=== PATIENT | female | born 1960 | race Caucasian/White ===

== ENCOUNTER → 2017-05-03 | Outpatient (CLI) | payer BC | LOC: MC.RAD 07:20 | DX: Z12.31 Encounter for screening mammogram for malignant neoplasm of breast (principal) ==

== ENCOUNTER → 2017-10-17 | Outpatient (CLI) | payer BC | LOC: COL.RAD 10-14 14:30 | DX: M79.671 Pain in right foot (principal) ==

== ENCOUNTER 2018-11-28 06:25 | Day surgery (SDC) | payer BC ==
[~2018-11-28] VITALS: Ht 162.6 cm; Wt 72.9 kg
[2018-11-28] MEDS ORDERED: LEXAPRO 10MG10 MG PO (06:45)
[2018-11-28] MEDS ORDERED: ZYRTEC10MGSGL PO (06:46)
[2018-11-28] MEDS ORDERED: PRINZIDE 12.5 M1 TA1 PO (06:46)
[2018-11-28] MEDS ORDERED: PROAIR HFA0.09 MG/AC IH (06:46)
[2018-11-28 06:47] VITALS: BP 124/84; PULSE 89; TEMP 97.7
[2018-11-28] MEDS ORDERED: RT ADVAIR 128 DISKUS IH (06:47)
[2018-11-28 08:20] VITALS: BP 117/64; PULSE 92; TEMP 97.6
[2018-11-28 08:35] VITALS: BP 111/81; PULSE 86
[2018-11-28 08:50] VITALS: BP 121/83; PULSE 78
--- NOTE | 2018-11-28 09:20 | NUR ---
Pt returned to [place] at 0820. Pt drowsy. Assisted pt to recliner in bay. Pt tolerated warm tea and a muffin. VSS-see flowsheet. Brother, Bernabe spoke with Dr Rushing after procedure. Discharge teaching completed, both verbalized understanding. Pt taken via wheelchair to [facility] vehicle for mo home.
== END 2018-11-28 09:20 | disposition home or self-care (01) ==
LOC: SDCO 06:25
DX: K57.30 Diverticulosis of large intestine without perforation or abscess without bleeding (principal); R19.04 Left lower quadrant abdominal swelling, mass and lump; I10 Essential (primary) hypertension; M19.90 Unspecified osteoarthritis, unspecified site; Z79.899 Other long term (current) drug therapy; E53.8 Deficiency of other specified B group vitamins; G43.909 Migraine, unspecified, not intractable, without status migrainosus; Z80.3 Family history of malignant neoplasm of breast; Z80.8 Family history of malignant neoplasm of other organs or systems
CPT/HCPCS: J2250; J2405; J3010; J7030

== ENCOUNTER → 2019-10-29 | Outpatient (CLI) | payer BC ==
[~2019-10-29] MED LIST: ADVIL200 MG PO; FLONASEALLERGY NS; LEXAPRO 10MG10 MG PO; MULTIPLE VITAMI1 CAP PO; PRINZIDE 12.5 M1 TA1 PO; PROAIR HFA0.09 MG/AC IH; RT ADVAIR 128 DISKUS IH; ZYRTEC10MGSGL PO
== END ==
LOC: MC.RAD 16:38
DX: Z12.31 Encounter for screening mammogram for malignant neoplasm of breast (principal)

== ENCOUNTER → 2021-04-20 | Outpatient (CLI) | payer BC | LOC: MC.RAD 11:15 | DX: Z12.31 Encounter for screening mammogram for malignant neoplasm of breast (principal) ==